=== PATIENT | female | born 1990 | race Caucasian/White ===

== ENCOUNTER → 2020-03-29 | Outpatient (CLI) | payer BC ==
[~2020-03-29] MED LIST: COLACE 100MG C100 MG PO; HYDROCODON-ACE1 EAC6 PO; IBU600 MG PO; IRON325 M1 PO; OMEPRAZOLE20 M1 PO; PRENATABS FA T1 EACH PO
[2020-03-29 13:24] LABS: HEMOGLOBIN 10.1 gm/dl (12.3-15.3); RED BLOOD COUNT 3.77 M/UL (4.00-5.10); WHITE BLOOD COUNT 7.2 K/UL (4.5-11.0)
== END ==
LOC: GENOP 12:45
PROVIDERS: Obstetrics & Gynecology
DX: Z01.812 Encounter for preprocedural laboratory examination (principal); O32.1XX0 Maternal care for breech presentation, not applicable or unspecified
CPT/HCPCS: 36415; 81001; 85025

== ENCOUNTER 2020-03-30 05:36 | Inpatient (IN) | payer BC ==
[~2020-03-30] VITALS: Ht 165.1 cm; Wt 77.1 kg
[2020-03-30] MEDS ORDERED: PRENATABS FA T1 EACH PO (06:20)
[2020-03-30] MEDS ORDERED: OMEPRAZOLE20 M1 PO (06:20)
[2020-03-30] MEDS ORDERED: COLACE 100MG C100 MG PO (08:50)
[2020-03-30] MEDS ORDERED: IBU600 MG PO (08:50)
[2020-03-30] MEDS ORDERED: HYDROCODON-ACE1 EAC6 PO (08:50)
[2020-03-31 06:00] LABS: HEMOGLOBIN 7.8 gm/dl (12.3-15.3)
[2020-03-31] MEDS ORDERED: IRON325 M1 PO (09:40)
== END 2020-04-01 16:44 | disposition home or self-care (01) | DRG 787 ==
LOC: OB 05:36
PROVIDERS: Obstetrics & Gynecology; ADMIT Obstetrics & Gynecology
PROC: 3E0234Z Introduction of Serum, Toxoid and Vaccine into Muscle, Percutaneous Approach (ICD-10-PCS; 2020-03-30)
PROC: 10D00Z1 Extraction of Products of Conception, Low, Open Approach (ICD-10-PCS; principal; 2020-03-30 07:56)
DX: O32.8XX0 Maternal care for other malpresentation of fetus, not applicable or unspecified (principal); O98.82 Other maternal infectious and parasitic diseases complicating childbirth; O75.89 Other specified complications of labor and delivery; K21.9 Gastro-esophageal reflux disease without esophagitis; Z20.822 Contact with and (suspected) exposure to COVID-19; B95.1 Streptococcus, group B, as the cause of diseases classified elsewhere; D64.9 Anemia, unspecified; O90.81 Anemia of the puerperium; Z23 Encounter for immunization; Z3A.39 39 weeks gestation of pregnancy; Z37.0 Single live birth; Z82.49 Family history of ischemic heart disease and other diseases of the circulatory system; Z84.89 Family history of other specified conditions
CPT/HCPCS: 36415; 82800; 85014; 85018; 90715; 94760; C9113; G0009; J0690; J1885; J2210; J2274; J2405; J2550; J2590; J3010; J7120